=== PATIENT | female | born 1950 | race Caucasian/White ===

== ENCOUNTER → 2023-01-22 | Outpatient (CLI) | payer OTHER, MEDICAID ==
[~2023-01-22] MED LIST: AMIO200T33 PO; AMLO-489 PO; FLUC100T3 PO; FURO1TAB33 PO; GABA400C11 PO; HYDR-4833 PO; INSLISPI SC; LEVEMIR SC; LIS5T PO; METO25TA5 PO; POTA1TAB61 PO; SIMV10TA84 PO; WARF2.5T39 PO
[2023-01-22 11:56] LABS: Basophils # (auto) 0 10 ^3/uL (0-0.2); Basophils % (auto) 0.7 % (0.0-2.0); Eosinophils # (auto) 0.2 10 ^3/uL (0-0.8); Eosinophils % (auto) 3.9 % (0.0-7.0); Hematocrit 31.5 % (36.0-46.0); Hemoglobin 10.6 g/dL (12.2-16.2); Lymphocytes # (auto) 1.9 10 ^3/uL (0.4-5.4); Lymphocytes % (auto) 31.3 % (10.0-50.0); Mean Corpuscular Hemoglobin 29.4 pg (28.0-32.0); Mean Corpuscular Hgb Conc. 33.6 g/dL (32.0-36.0); Mean Corpuscular Volume 87.6 fL (80.0-100.0); Monocytes # (auto) 0.5 10 ^3/uL (0-1.3); Monocytes % (auto) 7.9 % (0.0-12.0); Neutrophils # (auto) 3.5 10 ^3/uL (1.6-8.6); Neutrophils % (auto) 56.2 % (37.0-80.0); Nucleated Red Blood Cells % 0.1 %; Red Cell Distribution Width 14.6 % (11.8-14.3); White Blood Cell 6.2 10^3/uL (4.4-10.8)
[2023-01-22 12:07] LABS: Urine Bacteria FEW /hpf (None Seen); Urine Blood TRACE /uL (Negative); Urine Specific Gravity 1.008 (1.001-1.035); Urine WBC 5 /hpf (0 - 5)
[2023-01-22 12:17] LABS: INR 1.02 (0.9-1.15); Partial Thromboplastin Time 37.3 sec (24.6-33.4)
[2023-01-22 12:21] LABS: Albumin 3.5 g/dL (3.4-5.0); Calcium 9.1 mg/dL (8.5-10.1); Potassium 5.5 mmol/L (3.5-5.1)
[2023-01-22 12:27] LABS: BUN/Creatinine Ratio 25.2 (10.0-20.0); Bilirubin, Total 0.2 mg/dL (0.2-1.0); Uric Acid 8.4 mg/dL (2.6-6.0)
[2023-01-22 12:31] LABS: Micro Albumin 21.8 mg/L (0-30.0)
== END | disposition home or self-care (01) ==
LOC: LAB 10:48
PROVIDERS: ATTEND Internal Medicine Hematology & Oncology
DX: N18.30 Chronic kidney disease, stage 3 unspecified (principal); E11.40 Type 2 diabetes mellitus with diabetic neuropathy, unspecified; E11.21 Type 2 diabetes mellitus with diabetic nephropathy; E55.9 Vitamin D deficiency, unspecified; E03.9 Hypothyroidism, unspecified; D63.1 Anemia in chronic kidney disease; N39.0 Urinary tract infection, site not specified; R80.9 Proteinuria, unspecified; E21.3 Hyperparathyroidism, unspecified; M10.9 Gout, unspecified
CPT/HCPCS: 36415; 80053; 80061; 81001; 82043; 82306; 82570; 83036; 83735; 84443; 84550; 85025; 85610; 85730

== ENCOUNTER → 2023-05-11 | Outpatient (CLI) | payer OTHER, MEDICAID ==
[~2023-05-11] MED LIST changes: -AMLO-489 PO; +AMLO1TAB22 PO; +GABA-1251 PO; -GABA400C11 PO; +SIMV10TA20 PO; -SIMV10TA84 PO; +WARF-110 PO; -WARF2.5T39 PO
[2023-05-11 11:41] LABS: Basophils # (auto) 0.1 10 ^3/uL (0-0.2); Basophils % (auto) 0.8 % (0.0-2.0); Eosinophils # (auto) 0.2 10 ^3/uL (0-0.8); Eosinophils % (auto) 2.5 % (0.0-7.0); Hematocrit 29.8 % (36.0-46.0); Lymphocytes # (auto) 1.3 10 ^3/uL (0.4-5.4); Lymphocytes % (auto) 19.9 % (10.0-50.0); Mean Corpuscular Hemoglobin 29.3 pg (28.0-32.0); Mean Corpuscular Hgb Conc. 33.4 g/dL (32.0-36.0); Mean Corpuscular Volume 87.8 fL (80.0-100.0); Monocytes # (auto) 0.6 10 ^3/uL (0-1.3); Monocytes % (auto) 9.3 % (0.0-12.0); Neutrophils # (auto) 4.3 10 ^3/uL (1.6-8.6); Neutrophils % (auto) 67.5 % (37.0-80.0); Nucleated Red Blood Cells % 0.3 %; Red Blood Cells 3.39 10^6/uL (4.0-5.20); Red Cell Distribution Width 13.7 % (11.8-14.3); White Blood Cell 6.4 10^3/uL (4.4-10.8)
[2023-05-11 12:44] LABS: Micro Albumin 35.3 mg/L (0-30.0)
[2023-05-11 12:59] LABS: Albumin 3.5 g/dL (3.4-5.0); Bilirubin, Total 0.3 mg/dL (0.2-1.0); Total Protein 7.4 g/dL (6.4-8.2)
[2023-05-11 13:04] LABS: BUN/Creatinine Ratio 23.3 (10.0-20.0); Calcium 8.4 mg/dL (8.5-10.1); Potassium 5.1 mmol/L (3.5-5.1)
[2023-05-11 13:05] LABS: Uric Acid 9.9 mg/dL (2.6-6.0)
== END | disposition home or self-care (01) ==
LOC: LAB 11:06
PROVIDERS: ATTEND Internal Medicine Hematology & Oncology
DX: I48.20 Chronic atrial fibrillation, unspecified (principal); E55.9 Vitamin D deficiency, unspecified; N18.32 Chronic kidney disease, stage 3b; K21.9 Gastro-esophageal reflux disease without esophagitis; Z85.828 Personal history of other malignant neoplasm of skin
CPT/HCPCS: 36415; 80053; 80061; 82043; 82570; 83036; 83970; 84100; 84550; 85025

== ENCOUNTER → 2023-07-30 | Outpatient (CLI) | payer OTHER, MEDICAID ==
[2023-07-30 11:04] LABS: Basophils # (auto) 0.1 10 ^3/uL (0-0.2); Basophils % (auto) 0.8 % (0.0-2.0); Eosinophils # (auto) 0.1 10 ^3/uL (0-0.8); Hematocrit 33.3 % (36.0-46.0); Hemoglobin 11.3 g/dL (12.2-16.2); Lymphocytes # (auto) 1.4 10 ^3/uL (0.4-5.4); Lymphocytes % (auto) 14.2 % (10.0-50.0); Mean Corpuscular Hgb Conc. 33.8 g/dL (32.0-36.0); Mean Corpuscular Volume 85.7 fL (80.0-100.0); Monocytes # (auto) 0.6 10 ^3/uL (0-1.3); Monocytes % (auto) 6.4 % (0.0-12.0); Neutrophils # (auto) 7.5 10 ^3/uL (1.6-8.6); Neutrophils % (auto) 77.6 % (37.0-80.0); Nucleated Red Blood Cells % 0.1 %; Red Blood Cells 3.88 10^6/uL (4.0-5.20); Red Cell Distribution Width 14.4 % (11.8-14.3); White Blood Cell 9.6 10^3/uL (4.4-10.8)
[2023-07-30 11:46] LABS: Creatinine, Urine 24.48 mg/dL (30.0-125.0)
[2023-07-30 11:47] LABS: Alanine Aminotransferase 15 U/L (7-40); Albumin 4.3 g/dL (3.2-4.8); Alkaline Phosphatase 70 U/L (46-116); Anion Gap 7 (5-15); Aspartate Aminotransferase 21 U/L (13-40); BUN/Creatinine Ratio 17.8 (10.0-20.0); Bilirubin, Total 0.4 mg/dL (0.2-1.0); Blood Urea Nitrogen 23 mg/dL (9-23); Calcium 9.4 mg/dL (8.5-10.1); Carbon Dioxide 32 mmol/L (20-30); Chloride 90 mmol/L (98-107); Glucose 121 mg/dL (74-106); Phosphorus 3.7 mg/dL (2.4-5.1); Potassium 3.2 mmol/L (3.5-5.1); Sodium 129 mmol/L (136-145)
[2023-07-30 11:48] LABS: Total Protein 7.9 g/dL (5.7-8.2)
[2023-07-30 12:25] LABS: Magnesium 1.5 mg/dL (1.6-2.6)
== END | disposition home or self-care (01) ==
LOC: LAB 10:40
PROVIDERS: ATTEND Internal Medicine Nephrology
DX: E11.22 Type 2 diabetes mellitus with diabetic chronic kidney disease (principal); N18.31 Chronic kidney disease, stage 3a; D63.1 Anemia in chronic kidney disease; E21.3 Hyperparathyroidism, unspecified; R80.9 Proteinuria, unspecified; M10.9 Gout, unspecified
CPT/HCPCS: 36415; 80053; 82043; 82306; 82570; 83036; 83735; 83970; 84100; 84550; 85025